=== PATIENT | male | born 1995 | race Caucasian/White ===

== ENCOUNTER 2019-04-28 17:15 | Outpatient (CLI) | payer OTHER | END 2019-04-28 18:00 | disposition home or self-care (01) | LOC: LAB 17:15 | DX: J11.1 Influenza due to unidentified influenza virus with other respiratory manifestations (principal) ==

== ENCOUNTER 2019-05-23 12:37 | Emergency (ER) | payer OTHER ==
[~2019-05-23] VITALS: Ht 170.2 cm; Wt 88.5 kg
== END 2019-05-23 15:44 | disposition home or self-care (01) ==
LOC: ER 12:37
DX: K52.9 Noninfective gastroenteritis and colitis, unspecified (principal)

== ENCOUNTER → 2020-03-28 | Outpatient (CLI) | payer OTHER | END | disposition home or self-care (01) | LOC: PPH VACUNA 09:00 | DX: Z23 Encounter for immunization (principal) ==

== ENCOUNTER 2021-04-10 08:00 | Outpatient (CLI) | payer OTHER | END 2021-04-10 08:30 | disposition home or self-care (01) | LOC: PPH VACUNA 08:00 | PROVIDERS: ATTEND Emergency Medicine Pediatric Emergency Medicine | DX: Z23 Encounter for immunization (principal) ==

== ENCOUNTER 2021-05-18 16:58 | Outpatient (CLI) | payer OTHER | END 2021-05-18 23:00 | disposition home or self-care (01) | LOC: LAB 16:58 | PROVIDERS: ATTEND Internal Medicine Cardiovascular Disease | DX: E03.8 Other specified hypothyroidism (principal); M12.88 Other specific arthropathies, not elsewhere classified, other specified site; J44.9 Chronic obstructive pulmonary disease, unspecified; I10 Essential (primary) hypertension; E11.9 Type 2 diabetes mellitus without complications; M46.47 Discitis, unspecified, lumbosacral region; E78.2 Mixed hyperlipidemia; N40.0 Benign prostatic hyperplasia without lower urinary tract symptoms; E55.9 Vitamin D deficiency, unspecified ==

== ENCOUNTER 2021-07-05 15:32 | Outpatient (CLI) | payer OTHER | END 2021-07-05 15:34 | disposition home or self-care (01) | LOC: LAB 15:32 | DX: Z03.818 Encounter for observation for suspected exposure to other biological agents ruled out (principal) ==

== ENCOUNTER 2021-07-17 13:59 | Outpatient (CLI) | payer OTHER | END 2021-07-17 18:00 | disposition home or self-care (01) | LOC: LAB 13:59 | PROVIDERS: ATTEND Emergency Medicine Pediatric Emergency Medicine | DX: Z20.828 Contact with and (suspected) exposure to other viral communicable diseases (principal); Z03.818 Encounter for observation for suspected exposure to other biological agents ruled out ==

== ENCOUNTER 2021-11-07 09:03 | Outpatient (CLI) | payer OTHER | END 2021-11-07 15:00 | disposition home or self-care (01) | LOC: LAB 09:03 | PROVIDERS: ATTEND Emergency Medicine Pediatric Emergency Medicine | DX: U07.1 COVID-19 (principal) ==

== ENCOUNTER 2022-04-03 10:24 | Outpatient (CLI) | payer OTHER | END 2022-04-03 10:29 | disposition home or self-care (01) | LOC: PPH VACUNA 10:24 | PROVIDERS: ATTEND Emergency Medicine Pediatric Emergency Medicine | DX: Z23 Encounter for immunization (principal) ==

== ENCOUNTER 2023-01-11 11:09 | Outpatient (CLI) | payer OTHER | END 2023-01-11 11:10 | disposition home or self-care (01) | LOC: LAB 11:09 | PROVIDERS: ATTEND Dentist General Practice | DX: Z20.822 Contact with and (suspected) exposure to COVID-19 (principal) ==

== ENCOUNTER → 2023-03-13 | Outpatient (CLI) | payer OTHER | END | disposition home or self-care (01) | LOC: PPH VACUNA 09:10 | DX: Z23 Encounter for immunization (principal) ==

== ENCOUNTER 2024-05-31 14:00 | Outpatient (CLI) | payer OTHER | END 2024-05-31 14:10 | disposition home or self-care (01) | LOC: PPH VACUNA 14:00 | PROVIDERS: ATTEND Emergency Medicine Pediatric Emergency Medicine | DX: Z23 Encounter for immunization (principal) ==

== ENCOUNTER 2025-02-17 12:41 | Outpatient (CLI) | payer OTHER ==
[2025-02-17 13:53] LABS: COVID-19 AG POSITIVE (NEGATIVE)
[2025-02-17] MEDS ORDERED: OSEL75CA PO (15:09)
[2025-02-17] MEDS ORDERED: ZYRTEC10 MG PO (15:09)
[2025-02-17] MEDS ORDERED: TUSSIN DM MAX118 ML PO (15:09)
== END 2025-02-17 16:01 | disposition home or self-care (01) ==
LOC: LAB 12:41
PROVIDERS: ATTEND Preventive Medicine Occupational Medicine
DX: J11.1 Influenza due to unidentified influenza virus with other respiratory manifestations (principal); Z20.828 Contact with and (suspected) exposure to other viral communicable diseases

== ENCOUNTER 2025-02-17 14:04 | Emergency (ER) | payer OTHER ==
[~2025-02-17] VITALS: Ht 170.2 cm; Wt 90.3 kg
[2025-02-17 14:40] VITALS: O2SAT 99
[2025-02-17] MEDS ORDERED: GUAIFENESIN/DEXTROMETHORPHAN 100MG/10ML BLIST.PACK PO ONE ×2 (15:00→15:58)
[2025-02-17] MEDS ORDERED: OSELTAMIVIR PHOSPHATE 75 MG CAPSULE PO ONE ×2 (15:00→15:53)
[2025-02-17] MEDS ORDERED: TUSSIN DM MAX118 ML PO (15:09)
[2025-02-17] MEDS ORDERED: ZYRTEC10 MG PO (15:09)
[2025-02-17] MEDS ORDERED: OSEL75CA PO (15:09)
[2025-02-17] MEDS ORDERED: CETIRIZINE HCL 5 MG/5 ML ML PO ONE (15:15)
[2025-02-17] MEDS ORDERED: CETIRIZINE HCL 5MG/5ML BLIST.PACK PO ONE (15:54)
[2025-02-17 16:12] VITALS: BP 135/80
== END 2025-02-17 16:14 | disposition home or self-care (01) ==
LOC: ER 14:20
DX: U07.1 COVID-19 (principal); J10.1 Influenza due to other identified influenza virus with other respiratory manifestations; J45.909 Unspecified asthma, uncomplicated